=== PATIENT | male | born 1975 | race African-American/Black ===

== ENCOUNTER 2022-10-29 11:42 | Emergency (ER) | payer OTHER ==
[~2022-10-29] VITALS: Ht 177.8 cm; Wt 83.4 kg
[2022-10-29 13:12] LABS: BASO # 0.1 10^3/uL (0.0-0.2); EOS # 0.3 10^3/uL (0.0-0.5); HEMATOCRIT 45.7 % (42.0-52.0); HEMOGLOBIN 15.3 g/dl (13.5-17.5); LYMPH # 2.1 10^3/uL (1.5-5.0); LYMPH % 21.4 % (24.0-44.0); MEAN CORPUSCULAR HEMOGLOBIN 29.2 pg (27.0-33.0); MEAN CORPUSCULAR HGB CONC 33.5 g/dl (32.0-36.5); MEAN CORPUSCULAR VOLUME 87.2 fl (80.0-96.0); MONO # 0.6 10^3/uL (0.0-0.8); MONO % 6.2 % (2.0-8.0); NEUTROPHILS # 6.7 10^3/uL (1.5-8.5); NEUTROPHILS % 68.1 % (36.0-66.0); PLATELET COUNT, AUTOMATED 263 10^3/uL (150-450); RED BLOOD COUNT 5.24 10^6/uL (4.30-6.10); WHITE BLOOD COUNT 9.9 10^3/uL (4.0-10.0)
[2022-10-29 13:38] LABS: ALBUMIN 4.2 G/DL (3.2-5.2); ALKALINE PHOSPHATASE 95 U/L (46-116); ALT/SGPT 25 U/L (7.0-40); AST/SGOT 13 U/L (<34); BILIRUBIN,DIRECT 0.3 MG/DL (<0.4); BILIRUBIN,TOTAL 1.1 MG/DL (0.3-1.2); BLOOD UREA NITROGEN 17 MG/DL (9-23); CALCIUM LEVEL 9.4 MG/DL (8.5-10.1); CARBON DIOXIDE LEVEL 24 MMOL/L (20-31); CHLORIDE LEVEL 109 MMOL/L (98-107); CREATININE FOR GFR 0.85 MG/DL (0.70-1.30); GLOMERULAR FILTRATION RATE > 60.0 (>60); GLUCOSE, FASTING 66 MG/DL (60-100); POTASSIUM SERUM 4.3 MMOL/L (3.5-5.1); SODIUM LEVEL 140 MMOL/L (136-145); TOTAL PROTEIN 7.2 G/DL (5.7-8.2)
[2022-10-29] MEDS ORDERED: ISOVUE-370 76% 100ML VIAL As Ordered ONE (14:56)
[2022-10-29 15:05] LABS: CK-MB VALUE MASS 1.2 NG/ML (<3.6)
[2022-10-29 15:06] LABS: CPK CREATINE PHOSPHOKINASE 180 U/L (46-171); MB/CK RELATIVE INDEX 0.66 (< OR =4)
[2022-10-29 15:31] LABS: CK-MB VALUE MASS 1.2 NG/ML (<3.6)
[2022-10-29 15:32] LABS: CPK CREATINE PHOSPHOKINASE 184 U/L (46-171); MB/CK RELATIVE INDEX 0.65 (< OR =4)
[2022-10-29 16:00] VITALS: BP 137/66; TEMP 97.3; O2SAT 99
[2022-10-29] MEDS ORDERED: AZITHROMYCIN 250MG TABLET PO ONE (16:20)
[2022-10-29] MEDS ORDERED: AZIT-12 PO (16:30)
== END 2022-10-29 16:43 | disposition home or self-care (01) ==
LOC: M ED 11:42
DX: J18.9 Pneumonia, unspecified organism (principal)
CPT/HCPCS: 71045; 71275; 80048; 80076; 82550; 82553; 85025; 93005; 93041; 94760; 99285; Q9967